=== PATIENT | female | born 1930 | race Caucasian/White ===

== ENCOUNTER 2016-11-23 17:51 | Emergency (ER) | payer MEDICARE, MEDICAID ==
[~2016-11-23] VITALS: Ht 165.1 cm; Wt 60.0 kg
[~2016-11-23 17:51] MED LIST: ARIC10TA PO; ASPI81TA82 PO; CLON0.25 PO; LEVO50TA4 PO; LEXA10TA PO; MEMA1TAB PO; NUED20CA PO; PHILCAP2 PO; POLY119S PO; SERO25TA PO; ULTR50TA PO
[2016-11-23 17:57] VITALS: BP 123/69; PULSE 77; RESP 20; TEMP 98.3; O2SAT 98
[2016-11-23] MEDS ORDERED: ARIC10TA PO (18:22)
[2016-11-23] MEDS ORDERED: LORA-392 PO (18:22)
[2016-11-23] MEDS ORDERED: LEXA10TA PO (18:22)
[2016-11-23] MEDS ORDERED: REME15TA PO (18:22)
[2016-11-23] MEDS ORDERED: TRAM50TA PO ×2 (18:22→18:24)
[2016-11-23] MEDS ORDERED: SERO25TA PO (18:22)
[2016-11-23] MEDS ORDERED: MIRA33504 PO (18:22)
[2016-11-23] MEDS ORDERED: TRIA.1%T TOPICAL (18:22)
[2016-11-23] MEDS ORDERED: LORA-474 PO ×2 (18:22→18:24)
[2016-11-23] MEDS ORDERED: LEVO50TA4 PO (18:22)
[2016-11-23] MEDS ORDERED: ASPI81TA2 PO (18:22)
[2016-11-23] MEDS ORDERED: NAME5TAB2 PO (18:22)
[2016-11-23] MEDS ORDERED: COLA100C3 PO (18:22)
[2016-11-23] MEDS ORDERED: ENSULIQ PO (18:22)
[2016-11-23] MEDS ORDERED: NYSTCRE29 TOPICAL (18:22)
[2016-11-23] MEDS ORDERED: NUED20CA PO (18:22)
[2016-11-23] MEDS ORDERED: SODIUM CHLOR 0.9% 1000 ML INJ 1,000 ML IV SCH (18:31)
--- NOTE | 2016-11-23 18:39 | PD ---
HPI Chief Complaint: Altered Mental Status Time Seen by Provider: 18:31 Travel History International Travel<30 days: No Contact w/Intl Traveler<30days: No Traveled to known affect area: No History of Present Illness HPI 85-year-old female presents with progression of her dementia per the ambulance team. Patient is tearful and cannot provide me with any history. She was given 1 mg of Ativan prior to arrival. History is significantly limited. PFSH Past Medical History Narrative Medical By records Anemia: Yes Depression: Yes Cancer: No Cardiovascular Problems: Yes High Cholesterol: Yes Cerebrovascular Accident: Yes Dementia: Yes Diabetes: No Diminished Hearing: Yes Genitourinary: No Hiatal Hernia: Yes Hypertension: Yes Immune Disorder: No Musculoskeletal: No Neurologic: Yes (CONFUSION FOR PAST FEW WEEKS PER HISTORY) Psychiatric: No Reproductive: No Respiratory: No Thyroid Disease: Yes Tetanus Vaccination: Unknown Menopausal: Yes Past Surgical History Narrative Surgical By records AICD: No Arteriovenous Shunt: No Insulin Pump: No Joint Replacement: No Pacemaker: No Other Surgery: Yes Social History Narrative Social History By records Alcohol Use: No Tobacco Use: No Substance Use: No Allergies-Medications (Allergen,Severity, Reaction): Coded Allergies: Tylenol (Verified Allergy, Unknown, Nausea/Vomiting, 11/23/16) Reported Meds & Prescriptions Reported Meds & Active Scripts Active Reported Tramadol (Tramadol HCl) 50 Mg Tab 50 Mg PO BID PRN Ativan (Lorazepam) 1 Mg Tab 0.5 Mg PO TID PRN Triamcinolone Topical (Triamcinolone Acetonide) 0.1% Cream 1 Applic TOPICAL DAILY Remeron (Mirtazapine) 15 Mg Tab 15 Mg PO HS Ensure (Nutritional Supplements) 1 Liq Liq 1 Can PO TID Tramadol (Tramadol HCl) 50 Mg Tab 50 Mg PO BID Seroquel (Quetiapine Fumarate) 25 Mg Tab 25 Mg PO BID Miralax Powder (Polyethylene Glycol 3350 Powder) 17 Gm Powd 17 Gm PO HS Mix and dissolve one measuring capful (17 grams) in 8oz water or juice. Nystatin-Triamcinolone 100,000-0.1 Unit/Gm Cream 1 Applic TOPICAL BID Nuedexta 20-10 mg (Dextromethorphan HBr-Quinidine) 1 Cap Cap 1 Cap PO DAILY Namenda (Memantine) 5 Mg Tab 5 Mg PO DAILY Ativan (Lorazepam) 1 Mg Tab 1 Mg PO HS Ativan (Lorazepam) 0.5 Mg Tab 0.5 Mg PO DAILY Levothyroxine (Levothyroxine Sodium) 50 Mcg Tab 50 Mcg PO DAILY Lexapro (Escitalopram Oxalate) 10 Mg Tab 10 Mg PO DAILY Aricept (Donepezil) 10 Mg Tab 10 Mg PO HS Colace (Docusate Sodium) 100 Mg Cap 100 Mg PO Q12HR Aspirin EC Low Dose (Aspirin) 81 Mg Tabec 81 Mg PO DAILY Review of Systems ROS Limitations: Poor Historian Physical Exam Exam Limitations: Poor Historian Narrative GENERAL: Well-nourished, well-developed patient. SKIN: Warm and dry. HEAD: Normocephalic EYES: No injection or drainage. ENT: No nasal drainage noted. NECK: Supple, trachea midline. CARDIOVASCULAR: Regular rate and rhythm RESPIRATORY: No increased effort. No accessory muscle use. NEUROLOGICAL: States name, moves all extremities, tearful with clear speech Data Data Last Documented VS Vital Signs Date Time Temp Pulse Resp B/P Pulse Ox O2 Delivery O2 Flow Rate FiO2 11/23/16 18:51 20 98 Nasal Cannula 2 11/23/16 17:57 98.3 77 123/69 Orders Basic Metabolic Panel (Bmp) (11/23/16 18:31) Complete Blood Count With Diff (11/23/16 18:31) Prothrombin Time / Inr (Pt) (11/23/16 18:31) Act Partial Throm Time (Ptt) (11/23/16 18:31) Urinalysis - C+S If Indicated (11/23/16 18:31) Ct Brain W/O Iv Contrast(Rout) (11/23/16 18:31) Ecg Monitoring (11/23/16 18:31) Iv Access Insert/Monitor (11/23/16 18:31) Oximetry (11/23/16 18:31) Sodium Chloride 0.9% Flush (Ns Flush) (11/23/16 18:45) Sodium Chlor 0.9% 1000 Ml Inj (Ns 1000 M (11/23/16 18:31) MDM Medical Decision Making Medical Screen Exam Complete: Yes Emergency Medical Condition: Yes Medical Record Reviewed: Yes (past history confirmed) Differential Diagnosis UTI, hyponatremia, intracranial, dementia Narrative Course Will check blood work, urinalysis, CT brain and reevaluate Physician Communication Physician Communication oncoming physician to follow workup and reeval Sarahy Suh MD Nov 23, 2016 18:39
[2016-11-23] MEDS ORDERED: SODIUM CHLORIDE 0.9% FLUSH 5 ML FLUSH IVF PRN (18:45)
[2016-11-23 18:51] VITALS: RESP 20; O2SAT 98
[2016-11-23 19:03] LABS: AUTOMATED NEUTROPHIL # 2.7 TH/MM3 (1.8-7.7); BASOPHIL # 0.1 TH/MM3 (0-0.2); BASOPHIL % 0.3 % (0.0-2.0); EOSINOPHIL # 1.4 TH/MM3 (0-0.4); EOSINOPHIL % 7.1 % (0.0-4.0); HEMATOCRIT 36.6 % (35.0-46.0); LYMPH % 75.7 % (9.0-44.0); LYMPHOCYTE # 14.7 TH/MM3 (1.0-4.8); MEAN CELL VOLUME 87.8 FL (80.0-100.0); MEAN CORPUSCULAR HEMOGLOBIN 28.4 PG (27.0-34.0); MEAN CORPUSCULAR HGB CONC 32.4 % (32.0-36.0); MONO % 3.1 % (0.0-8.0); NEUT % 13.8 % (16.0-70.0); PLATELET COUNT 174 TH/MM3 (150-450); RED BLOOD COUNT 4.17 MIL/MM3 (4.00-5.30); RED CELL DISTRIBUTION WIDTH 17.7 % (11.6-17.2); WHITE BLOOD COUNT 19.4 TH/MM3 (4.0-11.0)
[2016-11-23 19:05] LABS: HEMO FLAGS AUTO DIFF
[2016-11-23 19:08] VITALS: BP 154/65; PULSE 61; RESP 16; O2SAT 100
--- NOTE | 2016-11-23 19:09 | PD ---
Physical Exam Date Seen by Provider: Nov 23, 2016 Time Seen by Provider: 19:08 Narrative Accepted in transfer of care from Dr. Suh GENERAL: Elderly female in no acute distress no respiratory distress with mild confusion GCS 13; patient with history of dementia apparently this is suspected to be near her baseline. SKIN: Warm and dry. Erythematous macular rash with rare isolated pustules and few vesicles as well as some lesions with small scabs affecting primarily the left upper extremity and upper mid back with scant involvement to the left side of the face the right upper extremity and rarely to the right lower extremity. No ulcerations no petechia no purpura. Rare ecchymotic lesion to right fifth toe without associated edema or deformity with brisk capillary refill less than 2 seconds. HEAD: Normocephalic. EYES: No scleral icterus. No injection or drainage. NECK: Supple, trachea midline. No JVD or lymphadenopathy. CARDIOVASCULAR: Regular rate and rhythm without murmurs, gallops, or rubs. RESPIRATORY: Breath sounds equal bilaterally. No accessory muscle use. GASTROINTESTINAL: Abdomen soft, non-tender, nondistended. MUSCULOSKELETAL: No cyanosis, or edema. BACK: Nontender without obvious deformity. No CVA tenderness. NEUROLOGICAL: Awake and alert. GCS: 13-14. No obvious cranial nerve deficits. Motor grossly within normal limits. Five out of 5 muscle strength in the arms and legs. Normal speech. PSYCHIATRIC: Appropriate mood and affect. Data Data Last Documented VS Vital Signs Date Time Temp Pulse Resp B/P Pulse Ox O2 Delivery O2 Flow Rate FiO2 11/23/16 19:09 60 15 100 Nasal Cannula 2 11/23/16 19:08 154/65 11/23/16 17:57 98.3 Orders Basic Metabolic Panel (Bmp) (11/23/16 18:31) Complete Blood Count With Diff (11/23/16 18:31) Prothrombin Time / Inr (Pt) (11/23/16 18:31) Act Partial Throm Time (Ptt) (11/23/16 18:31) Urinalysis - C+S If Indicated (11/23/16 18:31) Ct Brain W/O Iv Contrast(Rout) (11/23/16 18:31) Ecg Monitoring (11/23/16 18:31) Iv Access Insert/Monitor (11/23/16 18:31) Oximetry (11/23/16 18:31) Sodium Chloride 0.9% Flush (Ns Flush) (11/23/16 18:45) Sodium Chlor 0.9% 1000 Ml Inj (Ns 1000 M (11/23/16 18:31) Lactic Acid (11/23/16 19:39) Chest, Single Ap (11/23/16 ) Blood Culture (11/23/16 19:39) Drug Screen, Random Urine (11/23/16 19:39) Electrocardiogram (11/23/16 ) Troponin I (11/23/16 19:39) Influenzae A/B Antigen (11/23/16 19:39) Isolation 08,20 (11/23/16 19:58) Labs Laboratory Tests Test 11/23/16 11/23/16 11/23/16 18:40 20:09 20:20 White Blood Count 19.4 TH/MM3 Red Blood Count 4.17 MIL/MM3 Hemoglobin 11.8 GM/DL Hematocrit 36.6 % Mean Corpuscular Volume 87.8 FL Mean Corpuscular Hemoglobin 28.4 PG Mean Corpuscular Hemoglobin 32.4 % Concent Red Cell Distribution Width 17.7 % Platelet Count 174 TH/MM3 Mean Platelet Volume 8.7 FL Neutrophils (%) (Auto) 13.8 % Lymphocytes (%) (Auto) 75.7 % Monocytes (%) (Auto) 3.1 % Eosinophils (%) (Auto) 7.1 % Basophils (%) (Auto) 0.3 % Neutrophils # (Auto) 2.7 TH/MM3 Lymphocytes # (Auto) 14.7 TH/MM3 Monocytes # (Auto) 0.6 TH/MM3 Eosinophils # (Auto) 1.4 TH/MM3 Basophils # (Auto) 0.1 TH/MM3 CBC Comment AUTO DIFF Differential Total Cells 100 Counted Neutrophils % (Manual) 21 % Band Neutrophils % 3 % Lymphocytes % 66 % Monocytes % 3 % Eosinophils % 7 % Neutrophils # (Manual) 4.7 TH/MM3 Differential Comment FINAL DIFF MANUAL Platelet Estimate NORMAL Platelet Morphology Comment NORMAL Ovalocytes 1+ Prothrombin Time 10.6 SEC Prothromb Time International 1.0 RATIO Ratio Activated Partial 24.2 SEC Thromboplast Time Urine Color YELLOW Urine Turbidity CLEAR Urine pH 7.5 Urine Specific [place] 1.018 Urine Protein 30 mg/dL Urine Glucose (UA) NEG mg/dL Urine Ketones NEG mg/dL Urine Occult Blood NEG Urine Nitrite NEG Urine Bilirubin NEG Urine Urobilinogen LESS THAN 2.0 MG/DL Urine Leukocyte Esterase NEG Urine RBC 2 /hpf Urine WBC 5 /hpf Urine Squamous Epithelial <1 /hpf Cells Urine Hyaline Casts 1 /lpf Urine Mucus FEW /lpf Microscopic Urinalysis Comment CATH-CULT NOT IND Sodium Level 144 MEQ/L Potassium Level 4.1 MEQ/L Chloride Level 107 MEQ/L Carbon Dioxide Level 28.1 MEQ/L Anion Gap 9 MEQ/L Blood Urea Nitrogen 12 MG/DL Creatinine 1.16 MG/DL Estimat Glomerular Filtration 44 ML/MIN Rate Random Glucose 89 MG/DL Calcium Level 8.3 MG/DL Troponin I LESS THAN 0.02 NG/ML Lactic Acid Level 0.8 mmol/L Urine Opiates Screen NEG Urine Barbiturates Screen NEG Urine Amphetamines Screen NEG Urine Benzodiazepines Screen NEG Urine Cocaine Screen NEG Urine Cannabinoids Screen NEG MDM Medical Record Reviewed: Yes Supervised Visit with JOSE DE JESUS: No Interpretation(s) EKG: Sinus rhythm rate 64 left axis deviation septal QS age-indeterminate with no acute injury pattern change noted elevation Lactic acid: 0.8, not elevated CBC is automated differential leukocytosis 19,400 with rightward shift with lymphocytosis of 75%, mild eosinophilia (leukocytosis and lymphocytosis noted on previous labs on previous visits); manual differential also consistent with leukocytosis 66% Metabolic panel: remarkable for renal insufficiency creatinine 1.16, elevated ( creatinine near baseline compared to previous lab values on previous visits) Urine drug screen: Negative Urinalysis: grossly normal except for mild proteinuria trop I:less than 0.02, not elevated Influenza a/b ag: negative Last Impressions Head CT 11/23/16 1831 Signed Impressions: Service Date/Time: Wednesday, November 23, 2016 18:50 - CONCLUSION: 1. No acute hemorrhage, mass or acute infarction. 2. Extensive atrophy and chronic small vessel ischemic change. Karl Jo MD CBC & BMP Diagram 11/23/16 18:40 Vital Signs Date Time Temp Pulse Resp B/P Pulse Ox O2 Delivery O2 Flow Rate FiO2 11/23/16 19:09 60 15 100 Nasal Cannula 2 11/23/16 19:08 61 16 154/65 100 Nasal Cannula 2 11/23/16 18:51 20 98 Nasal Cannula 2 11/23/16 17:57 98.3 77 20 123/69 98 Differential Diagnosis Accepted in transfer of care from Dr. Suh please refer to her dictation Narrative Course Accepted in transfer of care from Dr. Suh; for follow up of pending diagnostics and patient disposition Lab values resulted patient identified to have leukocytosis of 19,000 with rightward shift with leukocytosis of 75% further exam reveals diffuse dermatitis papular macular with and without small vesicles rare isolated pustule and several are scabbed affecting the right left upper extremity as well as most of the upper back and to a lesser extent the face. Patient's vital signs stable at this time patient is afebrile. Other lab values are in normal range. Diagnostics extended to include EKG blood cultures lactic acid and influenza virus. Plan to contact facility to identify whether or not patient has had a dermatitis. Plan to admit as observation if no clear source of leukocytosis identified. Further evaluation of patient's history and presenting paperwork identifies patient has an fact been evaluated for upper extremity and torso dermatitis and has been identified to have a medication related dermatitis and is currently undergoing topical treatment with triamcinolone. EKG is sinus rhythm no acute ST elevation or injury pattern change and age-indeterminate QS septally. At this time if remaining labs are essentially unremarkable plan will be to return patient to nursing facility. Patient's case was to be discussed with primary provider Dr. Morrow however [facility] service is covering for Dr. Morrow and above information has been discussed and dermatologic consult identified by [facility] provider also discussed. Again plan should other values remain within normal limits patient has been identified by review of prior visits to have chronic leukocytosis with lymphocytosis and appears to be otherwise at her baseline therefore should be able to return safely to her assisted living facility. 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 Physician Communication Physician Communication case discussed with [facility] MD -- diagnostics at baseline --no indication for OBS Diagnosis Primary Impression: Dementia Additional Impressions: History of lymphocytosis Dermatitis, drug-induced History of drug dermatitis Referrals: Primary Care Physician call for appointment Patient Instructions: General Instructions Additional Instruction: Continue current medications as presently prescribed Contact/follow-up with primary care provider call office in a.m. Return to the emergency department for any concerns or change in condition Med/Other Pt SpecificInfo: No Change to Meds Disposition: 01 DISCHARGE HOME ([facility]) Condition: Stable Joselin Lu MD Nov 23, 2016 19:09
[2016-11-23 19:13] LABS: APTT (PATIENT) 24.2 SEC (24.3-30.1); PROTHROMBIN TIME - PATIENT 10.6 SEC (9.8-11.6)
--- NOTE | 2016-11-23 19:18 | RADRPT ---
EXAM DATE/TIME: 11/23/2016 18:50 [facility] COMPARISON: CT BRAIN W/O CONTRAST, April 18, 2016, 18:36. INDICATIONS : Altered mental status, confusion for three weeks. RADIATION DOSE: 56.35 CTDIvol (mGy) MEDICAL HISTORY : Dementia. Stroke Hypertension. SURGICAL HISTORY : None. ENCOUNTER: Initial ACUITY: 1 day PAIN SCALE: Non-responsive LOCATION: Bilateral head TECHNIQUE: Multiple contiguous axial images were obtained of the head. Using automated exposure control and adj ustment of the mA and/or kV according to patient size, radiation dose was kept as low as reasonably a chievable to obtain optimal diagnostic quality images. FINDINGS: CEREBRUM: The ventricles are normal for age with diffuse moderate to severe atrophic change. Extensive chronic small vessel ischemic changes are again noted. No evidence of midline shift, mass lesion, hemorrhage or acute infarction. No extra-axial fluid collections are seen. POSTERIOR FOSSA: The cerebellum and brainstem are intact. The 4th ventricle is midline. The cerebellopontine angle i s unremarkable. EXTRACRANIAL: The visualized portion of the orbits is intact. SKULL: The calvaria is intact. No evidence of skull fracture. CONCLUSION: 1. No acute hemorrhage, mass or acute infarction. 2. Extensive atrophy and chronic small vessel ischemic change. Karl Jo MD on November 23, 2016 at 19:15 Board Certified Radiologist. This report was verified electronically.
[2016-11-23 19:20] LABS: BICARBONATE 28.1 MEQ/L (21.0-32.0); BLOOD, URINE NEG (NEG); COMMENT (UR) CATH-CULT NOT IND; CULTURE IF INDICATED CATH CULTURE NOT IND; GLUCOSE,URINE NEG (NEG); HYALINE CAST, URINE 1 /lpf (RARE); KETONE, URINE NEG (NEG); MUCUS URINE FEW /lpf (OCC); NITRITE,URINE NEG (NEG); PH, URINE 7.5 (5.0-8.5); POTASSIUM 4.1 MEQ/L (3.5-5.1); SQUAMOUS EPITHELIAL CELL URINE <1 /hpf (0-5); URINE COLOR YELLOW (YELLW/STRAW)
[2016-11-23 19:47] LABS: BANDS 3 % (0-6); EOSINOPHILS 7 % (0-4); NEUTROPHIL # MANUAL DIFF 4.7 TH/MM3 (1.8-7.7); POLYS (SEG NEUTROPHILS) 21 % (16-70); WBC DIFF SAMPLE 100
[2016-11-23 19:48] LABS: OVALOCYTES 1+ (NORMAL); PLATELET ESTIMATE SMEAR NORMAL (NORMAL); PLATELET MORPHOLOGY NORMAL (NORMAL)
[2016-11-23 19:49] LABS: SCAN/DIFF FINAL DIFF MANUAL
--- NOTE | 2016-11-23 20:41 | RADRPT ---
EXAM DATE/TIME: 11/23/2016 20:13 [facility] COMPARISON: CHEST SINGLE AP, April 18, 2016, 20:34. INDICATIONS : Chest pain. MEDICAL HISTORY : None. SURGICAL HISTORY : None. ENCOUNTER: Initial ACUITY: 1 day PAIN SCORE: 6/10 LOCATION: Bilateral chest FINDINGS: A single view of the chest demonstrates Left basilar atelectasis. Right lung clear. The cardiomedia stinal contours are unremarkable. Osseous structures are intact. CONCLUSION: Left basilar atelectasis. Linden Hughes MD on November 23, 2016 at 20:36 Board Certified Radiologist. This report was verified electronically.
[2016-11-23 20:44] LABS: AMPHETAMINE, URINE NEG (NEG); BARBITURATES, URINE NEG (NEG); COCAINE, URINE NEG (NEG)
[2016-11-23 22:36] VITALS: BP 151/63; PULSE 60; RESP 16; O2SAT 94
[2016-11-24 01:12] VITALS: BP 124/80; PULSE 87; RESP 20; O2SAT 100
--- NOTE | 2016-11-24 14:42 | EKG ---
Date Performed: 11/23/2016 Time Performed: 20:04:37 PTAGE: 85 years EKG: Sinus rhythm WITH SINUS ARRHYTHMIA MARKED LEFT AXIS DEVIATION PATTERN CONSISTENT WITH PULMONARY DISEASE SEPTAL MY OCARDIAL INFARCTION ABNORMAL ECG PREVIOUS TRACING : 04/18/2016 18.12 Compared to prior tracing no significant change DOCTOR: Lee Jimenez Interpretating Date/Time 11/24/2016 14:41:23
== END 2016-11-24 08:17 | disposition home or self-care (01) ==
LOC: NEPC 17:51 → NEPA 11-24 08:17
DX: F03.90 Unspecified dementia, unspecified severity, without behavioral disturbance, psychotic disturbance, mood disturbance, and anxiety (principal); L27.0 Generalized skin eruption due to drugs and medicaments taken internally; I10 Essential (primary) hypertension; R94.31 Abnormal electrocardiogram [ECG] [EKG]; T50.905A Adverse effect of unspecified drugs, medicaments and biological substances, initial encounter
CPT/HCPCS: 70450; 71010; 80048; 80307; 81001; 83605; 84484; 85007; 85027; 85610; 85730; 87040; 87804; 93005; 96360; 99285; J7030